=== PATIENT | female | born 1980 | race African-American/Black ===

== ENCOUNTER → 2018-02-26 | Outpatient (CLI) | payer BC ==
[2018-02-26 15:39] LABS: BASOPHILS % 0.3 % (0.0-1.0); EOSINOPHILS # (AUTO) 0.1 (0.0-0.4); EOSINOPHILS % 2.2 % (0.0-6.0); HEMATOCRIT 39.2 % (34.2-44.1); HEMOGLOBIN 12.8 g/dL (12.0-16.0); LYMPHOCYTES # (AUTO) 1.4 (1.0-3.2); LYMPHOCYTES % 38.1 % (18.0-39.1); MEAN CORPUSCULAR HEMOGLOBIN 28.3 pg (28-32); MEAN CORPUSCULAR HGB CONC 32.7 g/dL (31-35); MEAN CORPUSCULAR VOLUME 86.7 fL (81-99); MONOCYTES # (AUTO) 0.4 (0.2-0.8); MONOCYTES % 9.9 % (4.4-11.3); NEUTROPHILS # (AUTO) 1.8 (2.1-6.9); NEUTROPHILS % 49.5 % (38.7-80.0); PLATELET COUNT 205 x10e3/uL (140-360); RED BLOOD COUNT 4.52 x10e6/uL (3.6-5.1)
[2018-02-26 15:53] LABS: BILIRUBIN,URINE NEGATIVE (NEGATIVE); CLARITY,URINE SL CLOUDY (CLEAR); COLOR,URINE YELLOW (YELLOW); KETONES,URINE NEGATIVE (NEGATIVE); LEUKOCYTE ESTERASE ,URINE 1+ (NEGATIVE); NITRITE,URINE NEGATIVE (NEGATIVE); PROTEIN,URINE DIPSTICK NEGATIVE (NEGATIVE); URINE UROBILINOGEN 0.2 mg/dL (0.2 - 1)
[2018-02-26 15:54] LABS: BACTERIA,URINE MODERATE /HPF; EPITHELIAL CELLS,URINE MANY /LPF
[2018-02-26 15:58] LABS: ALANINE AMINOTRANSFERASE 17 IU/L (0-55); ALBUMIN/GLOBULIN RATIO 0.9 (0.8-2.0); ALKALINE PHOSPHATASE 46 IU/L (40-150); ANION GAP 9.6 mmol/L (8-16); BLOOD UREA NITROGEN 12 mg/dL (7-26); BUN/CREATININE RATIO 14 (6-25); CALCIUM 9.8 mg/dL (8.4-10.2); CARBON DIOXIDE 29 mmol/L (22-29); CHLORIDE 100 mmol/L (98-107); CHOL/HDL RATIO 3.1 (3.0-3.6); CHOLESTEROL 166 MD/DL (0-199); CREATININE, SERUM 0.85 mg/dL (0.57-1.11); EST GLOMERULAR FILTRATION RATE > 60 ML/MIN (60-); GLUCOSE 106 mg/dL (74-118); HDL CHOLESTEROL 54 MG/DL (40-60); LDL CHOLESTEROL 80 MG/DL (60-130); POTASSIUM 3.6 mmol/L (3.5-5.1); SODIUM 135 mmol/L (136-145); TRIGLYCERIDES 162 MG/DL (0-149)
[2018-02-26 16:18] LABS: THYROID STIMULATING HORMONE 1.135 uIU/mL (0.350-4.940)
== END | disposition home or self-care (01) ==
LOC: LAB 15:14
PROVIDERS: ATTEND Internal Medicine
DX: R82.90 Unspecified abnormal findings in urine (principal); R79.89 Other specified abnormal findings of blood chemistry; E07.9 Disorder of thyroid, unspecified; E55.9 Vitamin D deficiency, unspecified; N18.9 Chronic kidney disease, unspecified
CPT/HCPCS: 36415; 80053; 80061; 81001; 82652; 83036; 84443; 85025

== ENCOUNTER 2018-06-06 17:44 | Inpatient (IN) | payer BC ==
[~2018-06-06] VITALS: Ht 177.8 cm; Wt 112.5 kg
[2018-06-06] MEDS ORDERED: VANCOMYCIN 1GM/NS 250 ML 250 ML IV STA (19:16)
[2018-06-06] MEDS ORDERED: MORPHINE SULFATE 2 MG/ML SYR IV STA (19:16)
[2018-06-06] MEDS ORDERED: ONDANSETRON HCL INJ 2 MG/ML VIAL IV STA (19:16)
[2018-06-06] MEDS ORDERED: PIPER-TAZ 3.375 GM 50 ML IV STA (19:16)
[2018-06-06 19:27] LABS: BACTERIA,URINE FEW /HPF; BASOPHILS % 0.2 % (0.0-1.0); BILIRUBIN,URINE NEGATIVE (NEGATIVE); CLARITY,URINE CLEAR (CLEAR); COLOR,URINE YELLOW (YELLOW); EOSINOPHILS # (AUTO) 0.1 (0.0-0.4); EOSINOPHILS % 0.9 % (0.0-6.0); HEMATOCRIT 34.7 % (34.2-44.1); HEMOGLOBIN 11.5 g/dL (12.0-16.0); KETONES,URINE NEGATIVE (NEGATIVE); LEUKOCYTE ESTERASE ,URINE NEGATIVE (NEGATIVE); LYMPHOCYTES # (AUTO) 1.3 (1.0-3.2); LYMPHOCYTES % 22.5 % (18.0-39.1); MEAN CORPUSCULAR HEMOGLOBIN 27.7 pg (28-32); MEAN CORPUSCULAR HGB CONC 33.1 g/dL (31-35); MEAN CORPUSCULAR VOLUME 83.6 fL (81-99); MONOCYTES # (AUTO) 0.5 (0.2-0.8); MONOCYTES % 8.1 % (4.4-11.3); NITRITE,URINE NEGATIVE (NEGATIVE); PLATELET COUNT 244 x10e3/uL (140-360); PROTEIN,URINE DIPSTICK NEGATIVE (NEGATIVE); RBC,URINE 21-50 /HPF (0-5); RED BLOOD COUNT 4.15 x10e6/uL (3.6-5.1); URINE UROBILINOGEN 0.2 mg/dL (0.2 - 1)
[2018-06-06] MEDS ORDERED: DIATRIZOATE MEGL/DIATRIZOA SOD 30 ML BTL PO ONE (19:28)
[2018-06-06] MEDS ORDERED: SODIUM CHLORIDE 0.9% 1000ML 1,000 ML IV ONE (19:30)
[2018-06-06] MEDS ORDERED: ACETAMINOPHEN 325 MG TAB PO ONE (19:30)
[2018-06-06 19:31] LABS: PREGNANCY TEST, URINE NEGATIVE (NEGATIVE)
[2018-06-06 19:42] LABS: ALANINE AMINOTRANSFERASE 12 IU/L (0-55); ALBUMIN 3.7 g/dL (3.5-5.0); ALBUMIN/GLOBULIN RATIO 0.8 (0.8-2.0); ALKALINE PHOSPHATASE 48 IU/L (40-150); AMYLASE 38 U/L (25-125); ANION GAP 14.7 mmol/L (8-16); BLOOD UREA NITROGEN 9 mg/dL (7-26); BUN/CREATININE RATIO 11 (6-25); CALCIUM 9.6 mg/dL (8.4-10.2); CARBON DIOXIDE 24 mmol/L (22-29); CHLORIDE 102 mmol/L (98-107); CREATININE, SERUM 0.81 mg/dL (0.57-1.11); EST GLOMERULAR FILTRATION RATE > 60 ML/MIN (60-); GLUCOSE 84 mg/dL (74-118); LIPASE 8 U/L (8-78); POTASSIUM 3.7 mmol/L (3.5-5.1); SODIUM 137 mmol/L (136-145)
--- NOTE | 2018-06-06 21:54 | Diagnostic Imaging Report ---
EXAM: CT Abdomen and Pelvis WITH contrast INDICATION: Abdominal wall abscess. COMPARISON: None. TECHNIQUE: Abdomen and pelvis were scanned utilizing a multidetector helical scanner from the lung base to the pubic symphysis after administration of IV contrast. Coronal and sagittal reformations were obtained. Routine protocol was performed. Scan was performed when during portal venous phase. IV CONTRAST: 100 mL of Isovue-370 ORAL CONTRAST: Gastrografin RADIATION DOSE: Total DLP: 778.62 mGy*cm Estimated effective dose: (DLP x 0.015 x size factor) mSv COMPLICATIONS: None FINDINGS: LINES and TUBES: None. LOWER THORAX: Unremarkable HEPATOBILIARY: No focal hepatic lesions. No biliary ductal dilation. GALLBLADDER: There is layering sludge in the gallbladder No wall thickening. SPLEEN: No splenomegaly. PANCREAS: No focal masses or ductal dilatation. ADRENALS: No adrenal nodules KIDNEYS/URETERS: Kidneys enhance symmetrically. No hydronephrosis. No cystic or solid mass lesions. No stones. GI TRACT: No abnormal distention, wall thickening, or evidence of bowel obstruction. Appendix is normal. PELVIC ORGANS/BLADDER: Unremarkable. LYMPH NODES: No lymphadenopathy. VESSELS: Unremarkable. PERITONEUM / RETROPERITONEUM: No free air or fluid. BONES: Unremarkable. SOFT TISSUES: There is evidence of postsurgical anterior abdominal wall repair (abdominoplasty or hernia repair) versus inflammatory soft tissue reaction without evidence of abnormal fluid collection. The findings are best seen on series 2, image 55 and sagittal image 83 IMPRESSION: 1. No evidence of intra-abdominal or pelvic abnormality. 2. Extensive inflammatory/postsurgical changes in the anterior abdominal wall. No evidence of abnormal fluid collection. Signed by: Dr. Christiano Bhakta M.D. on 06/06/2018 9:50 PM
[2018-06-06] MEDS ORDERED: NO HOME MEDS (22:19)
[2018-06-06] MEDS ORDERED: ACETAMINOPHEN 325 MG TAB PO PRN (22:45)
[2018-06-06] MEDS ORDERED: SODIUM CHLORIDE 0.9% 50ML 50 ML ONE (23:59)
[2018-06-06] MEDS ORDERED: IOPAMIDOL 370 MG/ML 200 ML INFUS..BTL INJ ONE (23:59)
[2018-06-07] VITALS (9 sets, daily range): BP systolic 104–145; BP diastolic 53–91
[2018-06-07] MEDS: SODIUM CHLORIDE 0.9% 1000ML 1,000 ML IV SCH ×4 (00:03→23:01)
[2018-06-07 04:45] LABS: BASOPHILS % 0.2 % (0.0-1.0); EOSINOPHILS # (AUTO) 0.1 (0.0-0.4); EOSINOPHILS % 1.2 % (0.0-6.0); HEMATOCRIT 33.5 % (34.2-44.1); LYMPHOCYTES # (AUTO) 1.4 (1.0-3.2); LYMPHOCYTES % 24.2 % (18.0-39.1); MEAN CORPUSCULAR HEMOGLOBIN 27.6 pg (28-32); MEAN CORPUSCULAR HGB CONC 32.8 g/dL (31-35); MONOCYTES # (AUTO) 0.6 (0.2-0.8); MONOCYTES % 9.9 % (4.4-11.3); NEUTROPHILS # (AUTO) 3.7 (2.1-6.9); NEUTROPHILS % 64.2 % (38.7-80.0); PLATELET COUNT 235 x10e3/uL (140-360); RED BLOOD COUNT 3.99 x10e6/uL (3.6-5.1); RED CELL DISTRIBUTION WIDTH 12.8 % (11.7-14.4)
[2018-06-07 05:10] LABS: ALANINE AMINOTRANSFERASE 9 IU/L (0-55); ALBUMIN 3.3 g/dL (3.5-5.0); ALBUMIN/GLOBULIN RATIO 0.8 (0.8-2.0); ALKALINE PHOSPHATASE 53 IU/L (40-150); BLOOD UREA NITROGEN 8 mg/dL (7-26); BUN/CREATININE RATIO 10 (6-25); CALCIUM 9.2 mg/dL (8.4-10.2); CARBON DIOXIDE 26 mmol/L (22-29); CHLORIDE 106 mmol/L (98-107); CREATININE, SERUM 0.77 mg/dL (0.57-1.11); EST GLOMERULAR FILTRATION RATE > 60 ML/MIN (60-); GLUCOSE 112 mg/dL (74-118); SODIUM 140 mmol/L (136-145)
[2018-06-07] MEDS: PIPER-TAZ 3.375 GM 50 ML IV SCH ×3 (05:37→22:00)
[2018-06-07] MEDS: VANCOMYCIN 1GM/NS 250 ML 250 ML IV SCH ×2 (08:12→20:26)
[2018-06-07] MEDS: ONDANSETRON HCL INJ 2 MG/ML VIAL IV PRN (23:01)
[2018-06-07] MEDS: MORPHINE SULFATE 2 MG/ML SYR IV PRN (23:01)
[2018-06-08] VITALS: BP 112/66
[2018-06-08 04:00] VITALS: BP 111/68
[2018-06-08] MEDS: SODIUM CHLORIDE 0.9% 1000ML 1,000 ML IV SCH ×2 (05:34→14:28)
[2018-06-08] MEDS: PIPER-TAZ 3.375 GM 50 ML IV SCH ×3 (05:34→22:00)
[2018-06-08 08:01] VITALS: BP 141/64
[2018-06-08] MEDS: VANCOMYCIN 1GM/NS 250 ML 250 ML IV SCH ×2 (08:38→20:30)
[2018-06-08 12:19] VITALS: BP 112/78
[2018-06-08 15:58] VITALS: BP 125/71
[2018-06-08 20:00] VITALS: BP 144/85
[2018-06-08] MEDS: HYDROCODONE/APAP 7.5MG-325MG 1 EA TAB PO PRN (22:25)
[2018-06-09 00:20] VITALS: BP 144/85
[2018-06-09] MEDS: PIPER-TAZ 3.375 GM 50 ML IV SCH ×3 (05:19→21:48)
[2018-06-09 05:48] LABS: BASOPHILS % 0.5 % (0.0-1.0); EOSINOPHILS # (AUTO) 0.1 (0.0-0.4); EOSINOPHILS % 3.1 % (0.0-6.0); HEMATOCRIT 32.6 % (34.2-44.1); HEMOGLOBIN 10.5 g/dL (12.0-16.0); LYMPHOCYTES # (AUTO) 1.7 (1.0-3.2); LYMPHOCYTES % 43.1 % (18.0-39.1); MEAN CORPUSCULAR HEMOGLOBIN 27.4 pg (28-32); MEAN CORPUSCULAR HGB CONC 32.2 g/dL (31-35); MEAN CORPUSCULAR VOLUME 85.1 fL (81-99); MONOCYTES # (AUTO) 0.4 (0.2-0.8); MONOCYTES % 10.4 % (4.4-11.3); NEUTROPHILS # (AUTO) 1.6 (2.1-6.9); NEUTROPHILS % 42.4 % (38.7-80.0); PLATELET COUNT 245 x10e3/uL (140-360); RED BLOOD COUNT 3.83 x10e6/uL (3.6-5.1); RED CELL DISTRIBUTION WIDTH 12.6 % (11.7-14.4)
[2018-06-09 08:07] VITALS: BP 115/67
[2018-06-09] MEDS: SODIUM CHLORIDE 0.9% 1000ML 1,000 ML IV SCH (08:17)
[2018-06-09] MEDS: VANCOMYCIN 1GM/NS 250 ML 250 ML IV SCH ×2 (10:00→20:30)
[2018-06-09 12:33] VITALS: BP 121/76
[2018-06-09 15:55] VITALS: BP 113/71
[2018-06-09 20:00] VITALS: BP 129/80
[2018-06-09] MEDS: MORPHINE SULFATE 2 MG/ML SYR IV PRN (21:48)
[2018-06-09] MEDS: ONDANSETRON HCL INJ 2 MG/ML VIAL IV PRN (21:48)
[2018-06-10 04:00] VITALS: BP 128/73
[2018-06-10] MEDS: PIPER-TAZ 3.375 GM 50 ML IV SCH ×3 (06:48→21:06)
[2018-06-10] MEDS: SODIUM CHLORIDE 0.9% 1000ML 1,000 ML IV SCH (06:48)
[2018-06-10 08:12] VITALS: BP 136/87
[2018-06-10] MEDS: VANCOMYCIN 1GM/NS 250 ML 250 ML IV SCH ×2 (10:00→21:45)
[2018-06-10 13:24] VITALS: BP 123/68
[2018-06-10] MEDS: HYDROCODONE/APAP 7.5MG-325MG 1 EA TAB PO PRN (15:51)
[2018-06-10 16:41] VITALS: BP 144/93
[2018-06-10 20:14] VITALS: BP 137/79
[2018-06-11 00:23] VITALS: BP 119/75
[2018-06-11 04:00] VITALS: BP 134/81
[2018-06-11] MEDS: PIPER-TAZ 3.375 GM 50 ML IV SCH ×2 (05:25→14:00)
[2018-06-11] MEDS: SODIUM CHLORIDE 0.9% 1000ML 1,000 ML IV SCH (05:25)
[2018-06-11 08:00] VITALS: BP 134/81
[2018-06-11] MEDS: VANCOMYCIN 1GM/NS 250 ML 250 ML IV SCH (08:00)
[2018-06-11 08:48] VITALS: BP 124/62
[2018-06-11 12:08] VITALS: BP 136/84
[2018-06-11] MEDS ORDERED: CLINDAMYCIN HC150 MG PO (18:07)
[2018-06-11] MEDS ORDERED: LEVAQUIN500 MG PO (18:08)
== END 2018-06-11 18:31 | disposition home or self-care (01) | DRG 920 ==
LOC: ER 17:44 → ERHOLD 22:40 → MED/SURG2 23:59
PROVIDERS: ADMIT Surgery; ATTEND Surgery
DX: L76.82 Other postprocedural complications of skin and subcutaneous tissue (principal); L02.211 Cutaneous abscess of abdominal wall; Z98.890 Other specified postprocedural states
CPT/HCPCS: 36415; 74177; 80053; 80202; 81001; 81025; 82150; 83605; 83690; 85025; 96361; 99284; J2270; J2405; J2543; J3370; J7030; Q9967